=== PATIENT | male | born 1990 | race Hispanic/Latino ===

== ENCOUNTER 2017-05-31 10:47 | Emergency (ER) | payer OTHER ==
[2017-05-31] MEDS ORDERED: TORADOL IM ONE (14:08)
--- NOTE | 2017-05-31 15:19 | Emergency Department Report ---
ED Head Trauma HPI - General Chief complaint: Head Injury Stated complaint: HEAD INJURY Time Seen by Provider: 05/31/17 14:08 Source: patient Mode of arrival: Ambulatory Limitations: No Limitations - History of Present Illness Initial comments: This is a 27-year-old male nontoxic, well nourished in appearance, no acute signs of distress presents to the ED complaining of headache status post direct blow at work and occipital region. Patient stated this occurred around 8 AM this morning. Patient stated he was working as a [employer] and a 2 x 8 wooden palate noted on his left occipital region. Patient denies any loss of consciousness. Patient denies falling down or neck trauma. Patient stated he developed his dizziness but is resolving now. Patient describes headache as aching with a level of 8 out of 10. Patient denies any blurry vision, dizziness , loss of consciousness, stiff neck, neck pain, nausea, vomiting, fever, chills , chest pain or shortness of breath. Denies any allergies or past medical history. MD Complaint: head injury -: This morning Mechanism of Injury: work related injury Location: occipital Loss of Consciousness: no Previous Trauma to this Area: No Place: work Radiation: none Severity: moderate Severity scale (0 -10): 8 Quality: aching Consistency: constant Provoking factors: none known Other Injuries: none Associated Symptoms: denies other symptoms. denies: confusion, amnesia, repetitive questioning, vision changes, nausea, vomiting, syncope, numbness, weakness, tingling, neck pain - Related Data Previous Rx's Medication Instructions Recorded Last Taken Type Butalb/Acetamin/Caff 50-325-40 1 tab PO Q6HR PRN #30 tab 05/31/17 Unknown Rx [Fioricet] Allergies/Adverse reactions: Allergies Allergy/AdvReac Type Severity Reaction Status Date / Time No Known Allergies Allergy Unverified 05/31/17 10:54 ED Review of Systems ROS: Stated complaint: HEAD INJURY Other details as noted in HPI Constitutional: denies: chills, fever Eyes: denies: eye pain, eye discharge, vision change ENT: denies: ear pain, throat pain Respiratory: denies: cough, shortness of breath, wheezing Cardiovascular: denies: chest pain, palpitations Endocrine: no symptoms reported Gastrointestinal: denies: abdominal pain, nausea, diarrhea Genitourinary: denies: urgency, dysuria Musculoskeletal: denies: back pain, joint swelling, arthralgia Skin: denies: rash, lesions Neurological: headache. denies: weakness, paresthesias Psychiatric: denies: anxiety, depression Hematological/Lymphatic: denies: easy bleeding, easy bruising ED Past Medical Hx - Past Medical History Previous Medical History?: No - Surgical History Past Surgical History?: No - Social History Smoking Status: Never Smoker Substance Use Type: Alcohol - Medications Home Medications: Home Medications Medication Instructions Recorded Confirmed Last Taken Type Butalb/Acetamin/Caff 50-325-40 1 tab PO Q6HR PRN #30 tab 05/31/17 Unknown Rx [Fioricet] ED Physical Exam - General Limitations: No Limitations General appearance: alert, in no apparent distress - Head Head exam: Present: atraumatic, normocephalic - Expanded Head Exam Expanded Head exam: Present: contusion. Absent: laceration, abrasion, hematoma, racoon eyes, choudhury's sign, general tenderness 1 - Contusion - Eye Eye exam: Present: normal appearance, PERRL, EOMI. Absent: scleral icterus, conjunctival injection, nystagmus, periorbital swelling, periorbital tenderness Pupils: Present: normal accommodation - ENT ENT exam: Present: normal exam, normal orophraynx, mucous membranes moist, TM's normal bilaterally, normal external ear exam - Neck Neck exam: Present: normal inspection, full ROM. Absent: tenderness, meningismus, lymphadenopathy, thyromegaly - Respiratory Respiratory exam: Present: normal lung sounds bilaterally. Absent: respiratory distress, wheezes, rales, rhonchi, stridor, chest wall tenderness, accessory muscle use, decreased breath sounds, prolonged expiratory - Cardiovascular Cardiovascular Exam: Present: regular rate, normal rhythm, normal heart sounds. Absent: bradycardia, tachycardia, irregular rhythm, systolic murmur, diastolic murmur, rubs, gallop - GI/Abdominal GI/Abdominal exam: Present: soft, normal bowel sounds. Absent: distended, tenderness, guarding, rebound, rigid, diminished bowel sounds - Rectal Rectal exam: Present: deferred - Extremities Exam Extremities exam: Present: normal inspection, full ROM, normal capillary refill. Absent: tenderness, pedal edema, joint swelling, calf tenderness - Back Exam Back exam: Present: normal inspection, full ROM. Absent: tenderness, CVA tenderness (R), CVA tenderness (L), muscle spasm, paraspinal tenderness, vertebral tenderness, rash noted - Neurological Exam Neurological exam: Present: alert, oriented X3, CN II-XII intact, normal gait, reflexes normal - Expanded Neurological Exam Expanded Patient oriented to: Present: person, place, time Speech: Present: fluid speech Cranial nerves: EOM's Intact: Normal, Gag Reflex: Normal, Tongue Deviation: Normal, Nystagmus: Normal, Facial Sensation: Normal, Facial Palsy with Forehead Movement: Normal, Facial Palsy without Forehead Movement: Normal Cerebellar function: Finger to Nose: Normal, Heel to Jenkins: Normal, Romberg: Normal Upper motor neuron: Manolo Neglect: Normal, Pronator Drift: Normal, Babinski Sign : Normal, Sensory Extinction: Normal Sensory exam: Upper Extremity Light Touch: Normal, Upper Extremity Pin Prick: Normal, Upper Extremity Temperature: Normal, UE 2 Point Discrimination: Normal, Lower Extremity Light Touch: Normal, Lower Extremity Pin Prick: Normal, Lower Extremity Temperature: Normal, LE 2 Point Discrimination: Normal Motor strength exam: RUE: 5, LUE: 5, RLE: 5, LLE: 5 DTR: bicep (R): 2+, bicep (L): 2+, tricep (R): 2+, tricep (L): 2+, knee (R): 2+ , knee (L): 2+, ankle (R): 2+, ankle (L): 2+ Best Eye Response (Gianna): (4) open spontaneously Best Motor Response (Gianna): (6) obeys commands Best Verbal Response (Gianna): (5) oriented Gianna Total: 15 - Psychiatric Psychiatric exam: Present: normal affect, normal mood - Skin Skin exam: Present: warm, dry, intact, normal color. Absent: rash ED Course Vital Signs 05/31/17 12:25 Temperature 98.6 F Pulse Rate 63 Respiratory 18 Rate Blood Pressure 132/81 O2 Sat by Pulse 100 Oximetry - Reevaluation(s) Reevaluation #1: 10/12/17 15:44 Patient is speaking in full sentences with no signs of distress noted. - Medical Decision Making This is a 27-year-old male that presents with a contusion to the left occipital region. Patient was evaluated by myself patient is stable. Patient currently denies any dizziness but is complaining of headache. Patient received Toradol 30 mg IM in the ED patient did state that her headache has subsided. Patient states he is currently feeling better. Denies any headache or other pain. CT scan of head/brain without contrast is obtained and dictated by radiologist with normal examination. Patient notified of CT results with no question noted by the patient. Patient received Fioricet at discharge. Patient was instructed to follow-up with a primary care doctor in 3-5 days or if symptoms worsen and continue return to emergency room as soon as possible possible. Patient is hemodynamically stable with stable vital signs. Patient states he is feeling better. At time time of discharge, the patient does not seem toxic or ill in appearance. No acute signs of distress noted. Patient agrees to discharge treatment plan of care. No further questions noted by the patient. - NEXUS Criteria Focal neurological deficit present: No Midline spinal tenderness present: No Altered level of consciousness: No Intoxication present: No Distracting injury present: No NEXUS results: C-Spine can be cleared clinically by these results. Imaging is not required. Critical care attestation.: If time is entered above; I have spent that time in minutes in the direct care of this critically ill patient, excluding procedure time. ED Disposition Clinical Impression: Headache Qualifiers: Headache type: unspecified Headache chronicity pattern: acute headache Intractability: not intractable Qualified Code(s): R51 - Headache Contusion Qualifiers: Encounter type: initial encounter Contusion area: head Contusion of head detail : scalp Qualified Code(s): S00.03XA - Contusion of scalp, initial encounter Disposition: DC-01 TO HOME OR SELFCARE Is pt being admited?: No Does the pt Need Aspirin: No Condition: Stable Instructions: Acute Headache (ED), Butalbital/Aspirin/Caffeine (By mouth) Additional Instructions: Follow-up with a primary care doctor in 3-5 days or if symptoms worsen and continue return to emergency room as soon as possible possible. Prescriptions: Butalb/Acetamin/Caff 50-325-40 [Fioricet] 1 tab PO Q6HR PRN #30 tab PRN Reason: Headache Referrals: PRIMARY CAREMD [Primary Care Provider] - 3-5 Days SALIMA MARY MD [Staff Physician] - 3-5 Days [facility] [Outside] - 3-5 Days [facility] [Outside] - 3-5 Days Forms: Work/School Release Form(ED)
--- NOTE | 2017-05-31 16:04 | Cat Scan Report ---
CRANIAL CT SCAN: History: Head trauma. Serial contiguous axial images were obtained through the cranium. Intravenous contrast material was not administered. The ventricles are normal in size and appearance. There is no mass effect or midline shift. No areas of abnormally increased or decreased attenuation are seen. No mass lesion is seen. The mastoid air cells and visualized portions of the sinuses are normal. IMPRESSION: Cranial CT scan within normal limits.
[2017-05-31 16:54] VITALS: BP 130/72
== END 2017-05-31 16:53 | disposition home or self-care (01) ==
LOC: ED 10:47
DX: S00.03XA Contusion of scalp, initial encounter (principal); W22.8XXA Striking against or struck by other objects, initial encounter; Y93.9 Activity, unspecified; Y92.9 Unspecified place or not applicable; Y99.9 Unspecified external cause status
CPT/HCPCS: 70450; 96372; 99283; J1885